=== PATIENT | female | born 1950 | race Caucasian/White ===

== ENCOUNTER 2023-03-27 23:31 | Emergency (ER) | payer MEDICARE, MEDICAID ==
[~2023-03-27] VITALS: Ht 170.2 cm; Wt 84.8 kg
[2023-03-28] MEDS ORDERED: amLODIPine BESYLATE 5 MG TAB PO ONE
[2023-03-28] MEDS ORDERED: cloNIDine HCL 0.1 MG TAB PO ONE (02:30)
[2023-03-28 03:46] VITALS: BP 174/56
== END 2023-03-28 02:33 | disposition home or self-care (01) ==
LOC: EDBD 23:31 → ER 23:31
DX: S16.1XXA Strain of muscle, fascia and tendon at neck level, initial encounter (principal); E07.89 Other specified disorders of thyroid; I10 Essential (primary) hypertension; Z86.73 Personal history of transient ischemic attack (TIA), and cerebral infarction without residual deficits; V89.2XXA Person injured in unspecified motor-vehicle accident, traffic, initial encounter; Y93.89 Activity, other specified; Y92.89 Other specified places as the place of occurrence of the external cause; Y99.8 Other external cause status
CPT/HCPCS: 70450; 71250; 72125; 74176